=== PATIENT | female | born 1975 ===

== ENCOUNTER 2021-07-02 11:10 | Day surgery (SDC) | payer OTHER ==
[~2021-07-02 11:10] MED LIST: ADALAT CC30 MG PO
[2021-07-02] MEDS ORDERED: KETO10TA2 PO (19:10)
[2021-07-02] MEDS ORDERED: PERCOCET 5-3251 EACH PO (19:11)
== END 2021-07-02 20:45 | disposition home or self-care (01) ==
LOC: CIR.AMB 11:10
PROVIDERS: ATTEND Obstetrics & Gynecology
DX: D27.0 Benign neoplasm of right ovary (principal); K66.8 Other specified disorders of peritoneum; N76.4 Abscess of vulva

== ENCOUNTER 2021-07-23 19:10 | Inpatient (IN) | payer OTHER ==
[~2021-07-23] VITALS: Ht 165.1 cm; Wt 65.8 kg
[~2021-07-23 19:10] MED LIST changes: +KETO10TA2 PO; +PERCOCET 5-3251 EACH PO
--- NOTE | 2021-07-23 19:44 | NUR ---
SE LE ORIENTA A PACIENTE SOBRE LAS ORDENES MEDICAS, REFIERE ENTEDER LAS MISMAS. SE CANALIZA Y SE LE COLOCA LOS IVF'S, SE LE ADMINTRAN LOS MEDICAMNETOS, SE LE REALIZAN EKG Y CT Y SE LE JONELLE LAS MUETRAS ANA LAS ORDENES MEDICAS.
[2021-07-24] MEDS ORDERED: LEVOCETIRIZINE D5 MG (08:14)
[2021-07-24] MEDS ORDERED: MELOXICAM15 MG (08:15)
[2021-07-24] MEDS ORDERED: FERROUS SULFAT325 MG (08:15)
[2021-07-24] MEDS ORDERED: KETO10TA2 PO (09:35)
== END 2021-07-24 13:52 | disposition home or self-care (01) | DRG 759 ==
LOC: ER 19:10 → SURH 22:48
PROVIDERS: ADMIT Obstetrics & Gynecology; ATTEND Obstetrics & Gynecology
PROC: BW21ZZZ Computerized Tomography (CT Scan) of Abdomen and Pelvis (ICD-10-PCS; principal; 2021-07-23)
DX: N73.8 Other specified female pelvic inflammatory diseases (principal); Z20.822 Contact with and (suspected) exposure to COVID-19